=== PATIENT | female | born 1925 | race African-American/Black ===

== ENCOUNTER 2017-02-11 08:42 | Emergency (ER) | payer MEDICARE, MEDICAID ==
[2017-02-11 09:20] LABS: #Eosinphils 0.2 thou/uL (0.0-0.7); #Lymphocytes 2.1 thou/uL (1.20-3.40); #Monocytes 0.6 thou/uL (0.11-0.59); #Neutrophils 4.9 thou/uL (1.40-6.50); %Basophils 0.1 % (0.0-1.0); %Eosinophils 2.3 % (0.0-10.0); %Lymphocytes 27.3 % (21.0-51.0); %Monocytes 7.5 % (0.0-10.0); Hematocrit 40.9 % (36.0-47.0); Mean Platelet Volume 8.5 fL (7.4-10.4); Red Blood Cell (RBC) Count 4.25 mill/uL (4.20-5.40); White Blood Cell (WBC) Count 7.8 thou/uL (4.8-10.8)
[2017-02-11 09:35] LABS: ALT (SGPT) 13 U/L (8-55); AST (SGOT) 17 U/L (5-34); Alkaline Phosphatase 75 U/L (40-150); Anion Gap 14 mmol/L (10-20); BUN (Urea Nitrogen) 45 mg/dL (9.8-20.1); Bilirubin, Total 0.4 mg/dL (0.2-1.2); Calc. Creatinine Clearance 0 mL/min (70-130); Carbon Dioxide 22 mmol/L (23-31); Chloride 111 mmol/L (98-107); Estimated GFR-MDRD 25; Globulin 3.8 g/dL (2.4-3.5); Protein, Total 7.7 g/dL (6.0-8.3)
[2017-02-11 11:12] LABS: Bilirubin Negative (Negative); Blood, Urine Moderate (Negative); Glucose, Urine (Dipstick) Negative (Negative); Ketone, Urine Negative (Negative); Nitrite Negative (Negative); Protein, Urine (Dipstick) Negative (Neg-Trace)
[2017-02-11 11:20] LABS: Bacteria/HPF 2+ HPF (None Seen); Hyaline Casts/LPF NONE SEEN LPF (0-3 Hyaline); WBC/HPF 21-50 HPF (0-3)
--- NOTE | 2017-02-11 11:54 | RAD ---
RIGHT KNEE 4 VIEWS: Date: 02/11/17 HISTORY: Fall. COMPARISON: None. FINDINGS: There is medial compartment joint space narrowing with sclerosis and osteophyte formation. The later al radiographic evaluation is poor. No displaced fracture is appreciated. Dense vascular calcifications. Moderate degenerative disease a t the lateral compartment. IMPRESSION: 1. Tricompartmental disease, worse in the medial compartment. 2. No large effusion can be seen, although lateral radiographic evaluation is poor. 3. Dense vascular calcifications. POS: [facility]
--- NOTE | 2017-02-11 11:56 | RAD ---
LEFT KNEE 4 VIEWS: Date: 02/11/17 HISTORY: Fall a couple of days ago. COMPARISON: None. FINDINGS: Severe medial compartment joint space narrowing. Bones are osteopenic. Multiple clips along the medi al soft tissues proximal tibia/fibula. Large joint effusion. Large osteophytes of patellofemoral com partment. Dense vascular calcifications. IMPRESSION: 1. 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 2. Large joint effusion may be sequelae of degenerative changes. No displaced fracture can be seen. Follow-up can be obtained. POS: [facility]
== END 2017-02-11 12:20 | disposition home or self-care (01) ==
LOC: ERS 08:42
DX: N39.0 Urinary tract infection, site not specified (principal); M17.0 Bilateral primary osteoarthritis of knee; I12.9 Hypertensive chronic kidney disease with stage 1 through stage 4 chronic kidney disease, or unspecified chronic kidney disease; E11.22 Type 2 diabetes mellitus with diabetic chronic kidney disease; N18.9 Chronic kidney disease, unspecified; E66.9 Obesity, unspecified; I25.10 Atherosclerotic heart disease of native coronary artery without angina pectoris; E78.5 Hyperlipidemia, unspecified; F03.90 Unspecified dementia, unspecified severity, without behavioral disturbance, psychotic disturbance, mood disturbance, and anxiety; J44.9 Chronic obstructive pulmonary disease, unspecified; Z79.84 Long term (current) use of oral hypoglycemic drugs; Z79.899 Other long term (current) drug therapy
CPT/HCPCS: 36415; 51701; 80053; 81003; 81015; 83690; 85025; 96361; 96374; A4353; J2270